=== PATIENT | male | born 1955 | race Caucasian/White ===

== ENCOUNTER 2024-06-18 16:32 | Emergency (ER) | payer MEDICARE ==
[2024-06-18] MEDS: fentaNYL 100 MCG/2 ML SDV IM ONE (16:51)
[2024-06-18] MEDS: Ketorolac 30 MG/ML SDV IM ONE (18:03)
== END 2024-06-18 19:51 | disposition home or self-care (01) ==
LOC: JP.ED 16:32
DX: S62.114A Nondisplaced fracture of triquetrum [cuneiform] bone, right wrist, initial encounter for closed fracture (principal); Z88.8 Allergy status to other drugs, medicaments and biological substances; Z79.899 Other long term (current) drug therapy; W01.0XXA Fall on same level from slipping, tripping and stumbling without subsequent striking against object, initial encounter; Y93.01 Activity, walking, marching and hiking
CPT/HCPCS: 29125; 73110; 73200; 76377; 96372; 99284; J1885; J3010; 99283